=== PATIENT | female | born 1945 | race Caucasian/White ===

== ENCOUNTER 2016-06-14 03:23 | Inpatient (IN) | payer OTHER ==
[~2016-06-14] VITALS: Ht 160 cm; Wt 103.4 kg
[~2016-06-14 03:23] MED LIST: ATORVASTATIN CA10 M1 PO; CIPRO 500MG TA500 MG PO; CO Q-10100 MG PO; CRESTOR10 MG PO; FLAG500 PO; FUROSEMIDE40 M1 PO; HYDROCODONE/ACE1 TA1 PO; INSTAFLEX PO; LISINOPRIL40 M1 PO; METFORMIN HCL500 MG PO; MULTIPLE VITAM1 EAC2 PO; NEURONTIN300 MG; NORVASC2.5 M1 PO; POTASSIUM CHLO10 ME5 PO; PROTONIX40 M3 PO; SERTRALINE HCL50 MG PO; SUPER B COMPLE150 MG PO; SYNTHROID0.025 MG PO; TRAMADOL HCL E200 MG PO; TRAMADOL HCL50 M1 PO; VOLTAREN100 GM TOP
[2016-06-14] MEDS ORDERED: CLONAZEPAM0.5 M2 PO (10:29)
[2016-06-14] MEDS ORDERED: MS CONTIN15 M2 PO (13:03)
[2016-06-14] MEDS ORDERED: MIRALAX17 G1 PO (13:03)
[2016-06-14] MEDS ORDERED: DILAUDID4 M1 PO (13:03)
[2016-06-14] MEDS ORDERED: COLACE100 M1 PO (13:03)
[2016-06-14] MEDS ORDERED: ASPIRIN EC325 M2 PO (13:03)
--- NOTE | 2016-06-14 13:06 | Patient Discharge Instructions ---
Discharge Instructions General Discharge Information You were seen/treated for: Right knee pain You had these procedures: Right total knee replacement Watch for these problems: Increasing pain, redness, warmth, swelling. Drainage of any type from incision. Inability to bear weight on right leg. Fever greater than 101.5. Do not soak the wound: Yes No bath, but you may shower: Yes Special Instructions: Incision: Dry dressing. May shower. No baths. No ointments of any kind. Ice as needed. Bowel regimen: Colace and or MiraLAX Weight-bearing as tolerated Follow-up with Dr. Benítez in 6 weeks. Call office for fevers greater than 101.5, excessive drainage or inability to bear weight on operative extremity. Visiting nurse will change dressing. Diet Continue normal diet: Yes Recommended Diet: Heart Healthy Additional DIET Information: Advance as tolerated Activity Full Activity/No Limits: No Activity Self Limited: Yes Pounds, do NOT lift more than: 10 Additional ACTIVITY Info: Weight-bear as tolerated on right leg Acute Coronary Syndrome Inclusion Criteria At DC or during hospital stay patient has or had the following: ACS DIAGNOSIS No Discharge Core Measures Meds if any: Prescribed or Continued at Discharge Meds if any: NOT Prescribed or Continued at Discharge Congestive Heart Failure Inclusion Criteria At DC or during hospital stay patient has or had the following: CHF DIAGNOSIS No Discharge Core Measures Meds if any: Prescribed or Continued at Discharge Meds if any: NOT Prescribed or Continued at Discharge Cerebrovascular accident Inclusion Criteria At DC or during hospital stay patient has or had the following: CVA/TIA Diagnosis No Discharge Core Measures Meds if any: Prescribed or Continued at Discharge Meds if any: NOT Prescribed or Continued at Discharge Venous thromboembolism Inclusion Criteria VTE Diagnosis No VTE Type NONE VTE Confirmed by (Test) NONE Discharge Core Measures - Per Current guidelines, there needs to be overlap - treatment for the first 5 days of Warfarin therapy. - If discharged on Warfarin prior to 5 days of - overlap therapy, the patient will need to be - assessed for post discharge needs including - *Post discharge parental anticoagulation - *Warfarin and/or parental anticoagulation education - *Follow up date to check INR post discharge At least 5 days overlap therapy as Inpatient No Meds if any: Prescribed or Continued at Discharge Note: Overlap Therapy is Warfarin and Anticoagulant Meds if any: NOT Prescribed or Continued at Discharge
--- NOTE | 2016-06-14 13:08 | Admission Core Measures ---
Admission Meds I reviewed the following Meds: Current Medications Sig/Roney Start time Last Medication Dose Stop Time Status Admin Acetaminophen 975 MG ONCE 06/14 0000 NR (Tylenol) 06/14 2359 Amlodipine Besylate 2.5 MG DAILY 06/15 1000 UNVr (Norvasc) Atorvastatin Calcium 5 MG DAILY 06/15 1000 UNVr (Lipitor) Clonazepam 0.5 MG AT BEDTIME 06/15 2200 UNVr (KlonoPIN) 06/22 0959 Lisinopril 40 MG DAILY 06/15 1000 UNVr (Prinivil) Oxycodone HCl 10 MG ONCE 06/14 0000 NR (Roxicodone) 06/14 2359 Pantoprazole Sodium 40 MG DAILY 06/15 1000 UNVr (Protonix) Sertraline HCl 50 MG DAILY 06/15 1000 UNVr (Zoloft) Acute Coronary Syndrome Inclusion Criteria ACS Diagnosis No Inpatient Core Measures LDL Reminder: If No, please order W/I first 24hr of stay Congestive Heart Failure Inclusion Criteria CHF Diagnosis No Cerebrovascular accident Inclusion Criteria CVA/TIA Diagnosis No Inpatient Core Measures Bedside Swallow Eval Reminder: If BSE failed, place ST order Antithrombotic Reminder: Order Antithrombotic Medication by end of day 2 Antithrombotic Reminder: Document Reason Antithrombotic Not ordered by end of day 2 AFIB/Flutter Reminder: If Present, add to problem list AFIB/Flutter Reminder: Order Anticoag Medication for pts with AFIB/Flutter Atherosclerosis Reminder: If Present, add to problem list LDL Reminder: If No, please order W/I first 24hr of stay PT Order Reminder: If No, please order Venous thromboembolism Inpatient Core Measures VTE Risk Factors: Age > 40, Surgery VTE Prophylaxis [facility] prophylaxis d/t No contraindications No VTE Pharm Prophylaxis d/t No contraindications Inclusion Criteria - Per Current guidelines, there needs to be overlap - treatment for the first 5 days of Warfarin therapy. - Parenteral Anticoagulation (IV or SC) needs to be - given along with Warfarin therapy. VTE Diagnosis No VTE Type NONE VTE Confirmed by (Test) NONE Problem List As ranked by this Provider includes Assessment & Plan 1. Unilateral primary osteoarthritis, right knee HOME MEDS Home Med List Amlodipine (Norvasc) 2.5 MG TABLET 1 TAB PO DAILY HTN (Reported) Aspirin (Ecotrin*) 325 MG TABLET.DR 1 TAB PO BID ANTICOAGULATION Atorvastatin Calcium 10 MG TABLET 0.5 TAB PO DAILY CHOLESTEROL (Reported) Clonazepam 0.5 MG TABLET 1 TAB PO DAILY ANXIETY/DEPRESSION (Reported) Coenzyme Q10/Vitamin E (Co-Q-10 100 MG-1 Iu) (Unknown Strength) SGL (Unknown Dose) PO DAILY SUPPLEMENT (Reported) Diclofenac Sodium (Voltaren) 1% GEL 1 GM TOP PRN PAIN (Reported) Docusate Sodium (Colace) 100 MG CAPSULE 1 CAP PO BID CONSTIPATION Furosemide 40 MG TAB 1 TAB PO PRN LEG EDEMA (Reported) Hydromorphone HCl (Dilaudid) 4 MG TABLET 1-2 TAB PO Q4-6H PRN PAIN Lisinopril 40 MG TAB 1 TAB PO DAILY BP (Reported) Morphine Sulfate (Ms Contin) 15 MG TABLET.ER 1 TAB PO BID PAIN Multivitamin (Multiple Vitamins) 1 TAB TAB 1 TAB PO 2XW SUPPLEMENT (Reported) Pantoprazole Sodium (Protonix) 40 MG TAB 40 MG PO DAILY ACID REFLUX (Reported ) Polyethylene Glycol 3350 (Miralax) 17 GRAM POWD.PACK 1 PAC PO DAILY CONSTIPATION Potassium Chloride [address] 1 TAB PO PRN SUPPLEMENT (Reported) SERTRALINE HCL (Sertraline Hydrochloride) 50 MG TAB 1 TAB PO DAILY MENTAL HEALTH (Reported) TRAMADOL HCL (Tramadol) 50 MG TAB 2 TAB PO Q8H PAIN (Reported) Tramadol HCl (Tramadol HCl ER) 200 MG TAB.ER.24H 1 TAB PO DAILY PAIN ( Reported) Vitamin B Complex (Super B Complex W/B-12) 1 TAB TAB 1 TAB PO DAILY SUPPLEMENT (Reported)
--- NOTE | 2016-06-14 13:10 | Surgical Discharge Summary ---
Visit Information Visit Dates Admission Date: 06/14/16 Discharge Date: 06/16/2016 History of Present Illness Chief Complaint: Right knee pain Medical History Cardiovascular: hypertension, hyperlipidemia Musculoskeletal: CHRONIC KNEE, BACK PAIN Psychiatric: depression Surgical History Pertinent Surgical History: non-contributory Psychosocial History What is Your Primary Language? Cymro Review of Systems: See H&P Hospital Course Course Attending Physician: REYMUNDO CA MD Primary Care Physician: JOSE JOHNSON MD Hospital Course: Patient was admitted to the hospital on 06/14/2016 for an elective right total knee replacement. She tolerated the procedure well. She was transferred to a general surgical floor. Her diet was advanced and tolerated. Her vital signs were stable and within normal limits. She voided spontaneously. Her pain was well controlled. She was evaluated and treated by physical therapy. She was deemed appropriate for discharge to home with home health services. Allergies: Coded Allergies: NO KNOWN ALLERGIES (06/08/16) Disposition Summary Disposition Principal Diagnosis: Right knee unilateral primary osteoarthritis Additional Diagnosis: None Discharge Disposition: home health services Discharge Instructions General Discharge Information Code Status: Full Code Patient's Diet: Heart healthy, advance as tolerated Patient's Activity: Weight-bear as tolerated on right leg Follow-Up Instructions/Appts: Incision: Dry dressing. May shower. No baths. No ointments of any kind. Ice as needed. Bowel regimen: Colace and or MiraLAX Weight-bearing as tolerated Follow-up with Dr. Ca in 6 weeks. Call office for fevers greater than 101.5, excessive drainage or inability to bear weight on operative extremity. Visiting nurse will change dressing. Medications at Discharge Discharge Medications: Stop taking the following medications: Tramadol HCl (Tramadol HCl) 50 MG TABLET ORAL Q8H Tramadol HCl (Tramadol HCl ER) 200 MG TAB.ER.24H ORAL DAILY Continue taking these medications: Lisinopril (Lisinopril) 40 MG TABLET 1 Tablet ORAL DAILY Sertraline HCl (Sertraline HCl) 50 MG TABLET 1 Tablet ORAL DAILY Diclofenac Sodium (Voltaren) 1 % GEL..GRAM. 1 Gram On the skin 4 TIMES A DAY as needed for PAIN Instructions: apply to affected area(s) Pantoprazole Sodium (Protonix) 40 MG TABLET.DR 1 Tablet ORAL DAILY Furosemide (Furosemide) 40 MG TABLET 1 Tablet ORAL DAILY as needed for LEG EDEMA Potassium Chloride (Potassium Chloride) 10 MEQ TAB.ER.PRT 1 Tablet ORAL DAILY as needed for SUPPLEMENT Comments: PT ONLY TAKES PRN WITH LASIX Multivitamin (Multiple Vitamins) 1 EACH TABLET 1 Tablet ORAL 2 times per week Comments: MON AND FRI Vitamin B Complex & Vit C No.4 (Super B Complex) 150 MG TABLET 1 Tablet ORAL DAILY Atorvastatin Calcium (Atorvastatin Calcium) 10 MG TABLET 0.5 Tablet ORAL DAILY Amlodipine (Norvasc) 2.5 MG TABLET 1 Tablet ORAL DAILY Clonazepam (Clonazepam) 0.5 MG TABLET 1 Tablet ORAL DAILY Start taking the following new medications: Hydromorphone HCl (Dilaudid) 4 MG TABLET 1-2 Tablet ORAL Q4-6H as needed for PAIN Qty = 36 No Refills Morphine Sulfate (Ms Contin) 15 MG TABLET.ER 1 Tablet ORAL TWICE DAILY Qty = 6 No Refills Aspirin (Ecotrin*) 325 MG TABLET.DR 1 Tablet ORAL TWICE DAILY Qty = 60 No Refills Polyethylene Glycol 3350 (Miralax) 17 GRAM POWD.PACK 1 Packet ORAL DAILY Qty = 7 No Refills Instructions: dissolve in water, DISCONTINUE USE IF YOU DEVELOP LOOSE STOOL OR DIARRHEA Docusate Sodium (Colace) 100 MG CAPSULE 1 Capsule ORAL TWICE DAILY Qty = 14 No Refills Instructions: DISCONTINUE USE IF YOU DEVELOP LOOSE STOOL OR DIARRHEA Aspirin (Ecotrin*) 325 MG TABLET. 1 Tablet ORAL TWICE DAILY Qty = 60 No Refills Polyethylene Glycol 3350 (Miralax) 17 GRAM POWD.PACK 1 Packet ORAL DAILY Qty = 7 No Refills Instructions: dissolve in water, DISCONTINUE USE IF YOU DEVELOP LOOSE STOOL OR DIARRHEA Docusate Sodium (Colace) 100 MG CAPSULE 1 Capsule ORAL TWICE DAILY Qty = 14 No Refills Instructions: DISCONTINUE USE IF YOU DEVELOP LOOSE STOOL OR DIARRHEA
--- NOTE | 2016-06-14 16:34 | Operative Report ---
Operative/Inv Procedure Report Surgery Date: 06/14/16 Name of Procedure: 1. Right total knee replacement 2. Left knee cortisone injection Pre-Operative Diagnosis: Primary Bilateral knee DJD Post-Operative Diagnosis: Same Estimated Blood Loss: 50ml to 100ml Surgeon/Paster Operator: REYMUNDO CA MD Anesthesia: block Operative/Procedure Note Note: Description of Procedure: The patient was taken to the operating room and positively identified. After induction of spinal anesthesia and administration of appropriate pre-operative antibiotics, the patient was positioned supine on the operating room table and all bony prominences were well padded. The left knee was prepped sterilely and injected with a mixture of 2 mL's of Depo-Medrol and 8 mL of half percent Marcaine. A Band-Aid was placed over the injection site. Attention was then turned to the right lower extremity. A well-padded pneumatic tourniquet was placed on the right upper thigh. After performing a surgical timeout, the right lower extremity was prepped and draped in the usual sterile fashion. After exsanguination with Esmarch the tourniquet was inflated to 250mm of mercury. A standard medial parapatellar approach was made to the knee. This was carried down through skin and subcutaneous tissue to the level of the fascia. Meticulous hemostasis was maintained with Bovie electrocautery. The extensor mechanism and patellar retinaculum were opened sharply and the patella was everted. The infrapatellar fat was resected in order to improve exposure. Osteophytes were trimmed from the patella and femoral condyles and the patella was re-everted and tucked laterally. A medial release was performed and the cruciate ligaments were resected. The tibia was then subluxed anteriorly. Utilizing the appropriate extra-medullary guide, the proximal tibia was trimmed perpendicular to the long axis of the tibial shaft. Attention was then turned to the femur. After opening the medullary canal, the distal femoral cut was made in 6 degrees of valgus utilizing the appropriate intra-medullary guide. The extension gap was checked and found to be appropriate. The femur was then sized and the remainder of the femoral cuts were made with a size 4 4-in-1 femoral cutting guide. The flexion gap was checked and found to be symmetric and appropriate. The knee was then trialed with a size 4 femoral component, a size 4 tibial component and a size 11 mm polyethylene insert. The patella was trimmed to accept an A 32 patella. This yielded excellent range of motion, stability and patellar tracking. All trial components were removed and the knee was copiously irrigated with sterile saline. All components were cemented into place with [place] Simplex cement. All the components were of the barcoo Triathlon knee system of the above stated sizes. The knee was again irrigated after cementation. The extensor mechanism and patellar retinaculum were repaired using interrupted #1 vicryl suture. The skin was re-approximated with 2-0 vicryl and closed with jillian. A sterile dressing was applied, the tourniquet was deflated, the patient was awakened and taken to the recovery room in satisfactory condition.
[2016-06-14 19:00] VITALS: BP 160/80
--- NOTE | 2016-06-14 19:00 | NUR ---
LATE ENTRY: PT ARRIVED TO FLOOR FROM PACU. STABLE AND IN NO ACUTE DISTRESS. PT IS C/O R KNEE PAIN 10/25- TO MEDICATE WITH PRN MEDICATION. OTHERWISE, DOING WELL. ORIENTED TO ROOM AND CALL [facility]. EVENING ELECTRICAL TESTER CONTACTED FOR BOXED LUNCH PT C/O FEELING HUNGRY. SEE ADMISSION ASSESSMENT FOR FURTHER DETAILS. REPORT GIVEN TO OSVALDO LEE. TO CONT TO MONITOR.
--- NOTE | 2016-06-14 21:56 | PN- Orthopedic ---
Subjective Subjective: poc s/p right tka no major complaints now cp, sob, no n+v with diet Objective Vital Signs and I&Os Vital Signs Date Time Temp Pulse Resp B/P Pulse O2 O2 Flow FiO2 Ox Delivery Rate 06/14 1900 98.9 90 20 160/80 92 Room Air Physical Exam: cv: rrr lungs: clear abd: soft, +bs ext: right le distal cms inatact drsg dry on q in place Assessment/Plan Assessment/Plan ortho stable plan oob with pt in am home d/c planning Core Measures/Miscellaneous Venous Thromboembolism VTE Risk Factors: Age > 40, Obesity, Surgery VTE Contraindications: No Contraindications VTE Prophylaxis Ordered Inpt: Mech & Pharm VTE Diagnosis: No VTE Type: NONE VTE Confirmed by (Test): NONE Beta Gerry Is Beta Gerry a Home Med? Yes Antibiotics Is Patient on Antibiotics? Yes
[2016-06-15 00:59] VITALS: BP 182/71
[2016-06-15 04:00] VITALS: BP 158/80
--- NOTE | 2016-06-15 07:20 | PN- Orthopedic ---
Subjective Subjective: The patient was seen this morning postoperatively. She reports that her pain is not adequately controlled with the current pain regiment. She has no other complaints at the current time and is eager to get up and work with physical therapy this morning. Objective Vital Signs and I&Os Vital Signs Date Time Temp Pulse Resp B/P Pulse O2 O2 Flow FiO2 Ox Delivery Rate 06/15 0621 85 165/87 06/15 0400 91 158/80 06/15 0059 98.7 90 20 182/71 94 Room Air 06/14 1900 98.9 90 20 160/80 92 Room Air Intake & Output 06/15 0800 06/15 0000 06/14 1600 06/14 0800 06/14 0000 06/13 1600 Intake Total 1400 300 Output Total 3560 690 Balance -2160 -390 Intake, IV 600 300 Intake, Oral 800 Output, 10 40 Drainage Output, Urine 3550 650 Patient 228 lb Weight Physical Exam: Gen.: Alert and in no obvious distress Skin: Warm and dry Extremities: Bilateral lower extremities are warm without calf tenderness or significant edema. Gross motor and sensory are intact. Left lower extremities dressings clean, dry, and intact. There is a Suretrans drain in place holding suction with serosanguineous drainage in the canister. There is an On-Q pain pump in place. Assessment/Plan Assessment/Plan Assessment: 70-year-old female status post left total knee arthroplasty postoperative day 1. The patient is progressing as expected however pain is not adequately controlled current time. Plan: Will add long-lasting morphine and when necessary Toradol to current pain regiment Hep-Lock IV fluids and DC Alejandra catheter Follow-up morning laboratory studies Out of bed with physical therapy DC Suretrans drain First surgical dressing change tomorrow GI and DVT prophylaxis Core Measures/Miscellaneous Venous Thromboembolism VTE Risk Factors: Age > 40, Obesity, Surgery VTE Contraindications: No Contraindications VTE Prophylaxis Ordered Inpt: Mech & Pharm VTE Diagnosis: No VTE Type: NONE VTE Confirmed by (Test): NONE Beta Gerry Is Beta Gerry a Home Med? Yes Antibiotics Is Patient on Antibiotics? No
[2016-06-15 08:03] LABS: ABSOLUTE BASOPHIL COUNT 0 /CUMM (0.0-0.2); ABSOLUTE EOSINOPHIL COUNT 0 /CUMM (0.0-0.7); ABSOLUTE LYMPH COUNT 0.8 /CUMM (1.2-3.4); ABSOLUTE MONOCYTE COUNT 0.3 /CUMM (0.10-0.60); BASOPHIL % 0 % (0.0-2.0); EOSINOPHIL % 0 % (0-5); MEAN CORPUSCULAR HGB 31.1 PG (27.0-31.0); MEAN CORPUSCULAR HGB CONC 34.5 G/DL (33.0-37.0); MEAN CORPUSCULAR VOLUME 90.1 FL (81.0-99.0); MEAN PLATELET VOLUME 8.7 FL (7.4-10.4); PLATELET COUNT 191 /CUMM (130-400); RBC DISTRIBUTION WIDTH 13.3 % (11.5-14.5); RED BLOOD CELL CT 3.67 /CUMM (4.20-5.40)
[2016-06-15 08:12] LABS: GRANULOCYTE % 87.3 % (42.2-75.2)
[2016-06-15 08:41] VITALS: BP 172/83
[2016-06-15 09:36] LABS: WHITE BLOOD CELL COUNT 9.1 /CUMM (4.8-10.8)
[2016-06-15 16:52] VITALS: BP 136/72
--- NOTE | 2016-06-15 20:44 | NUR ---
ALERT AND ORIENTED X 3. VITAL SIGNS STABLE. DENIES CHEST PAIN. + PULSES ON ROOM AIR. ONQ PUMP AT 12ML/HR. DSG TO R KNEE IS C/D/I. MEDICATION GIVEN FOR PAIN. PATIENT RESTING AT THIS TIME. WILL CONTINUE TO MONITOR
[2016-06-15 23:57] VITALS: BP 124/60
--- NOTE | 2016-06-16 07:13 | PN- Orthopedic ---
Subjective Subjective: OOB in chair Had a good night. Pain is well controlled. Worked with PT yesterday and ambulated in hallway. Tolerating diet, no bm Objective Vital Signs and I&Os Vital Signs Date Time Temp Pulse Resp B/P Pulse O2 O2 Flow FiO2 Ox Delivery Rate 06/15 2357 98.9 72 18 124/60 94 Room Air 06/15 1652 98.5 84 20 136/72 94 Room Air 06/15 0927 84 172/83 06/15 0841 98.3 84 18 172/83 96 Room Air Intake & Output 06/16 0800 06/16 0000 06/15 1600 06/15 0800 06/15 0000 06/14 1600 Intake Total 675 1400 300 Output Total 550 4060 690 Balance 125 -2660 -390 Intake, IV 600 300 Intake, Oral 675 800 Output, 10 40 Drainage Output, Urine 550 4050 650 Patient 228 lb Weight Physical Exam: vss, afebrile General: alert and oriented times three Chest: clear anteriorly bilaterally, RRR Abd: soft, good bs Ext: warm, edema around R knee, no calf tenderness wound: jillian intact, no drainage or erythema, dressing dry Current Medications: Current Medications Sig/Roney Start time Last Medication Dose Route Stop Time Status Admin Acetaminophen 1,000 MG Q6P PRN 06/14 193 DC IV 06/15 192 Amlodipine Besylate 2.5 MG DAILY 06/15 1000 DC PO Amlodipine Besylate 2.5 MG DAILY 06/15 1000 AC 06/15 PO 0927 Aspirin 325 MG BID 06/14 2199 AC 06/15 PO 211 Atorvastatin Calcium 5 MG 1700 06/15 1700 AC 06/15 PO 1658 Atorvastatin Calcium 5 MG DAILY 06/15 1000 DC PO Clonazepam 0.5 MG AT BEDTIME 06/15 220 DC PO 06/22 0959 Clonazepam 0.5 MG AT BEDTIME 06/15 2200 AC 06/15 PO / 0959 2111 Docusate Sodium 100 MG BID 06/14 220 AC 06/15 PO 2111 Hydromorphone HCl 2 MG Q4P PRN 06/14 1930 AC 06/15 PO 1324 Hydromorphone HCl 4 MG Q4P PRN 06/14 1930 AC PO Ketorolac 15 MG Q8P PRN 06/15 0715 AC 06/16 Tromethamine IV 0328 Lisinopril 40 MG DAILY 06/15 1000 DC PO Lisinopril 40 MG DAILY 06/15 1000 AC 06/15 PO 620 Morphine Sulfate 15 MG BID 06/15 1000 AC 06/15 PO 2111 Morphine Sulfate 2 MG Q2P PRN 06/14 1930 AC 06/14 IV 2140 Ondansetron HCl 4 MG Q6P PRN 06/14 1930 AC IV Pantoprazole Sodium 40 MG DAILY 06/15 1000 DC IV Pantoprazole Sodium 40 MG DAILY 06/15 1000 AC 06/15 IV 0927 Polyethylene Glycol 17 GM DAILY 06/15 1000 AC 06/15 PO 927 Promethazine HCl 12.5 MG Q6P PRN 06/14 1930 AC IV 06/21 1259 Ropivacaine 500 ML ONCE ONE 06/14 1700 AC 06/14 ON-Q Ball 1 BAG INJ 06/16 1039 1700 Sertraline HCl 50 MG DAILY 06/15 1000 DC PO Sertraline HCl 50 MG DAILY 06/15 1000 AC 06/15 PO 926 Zolpidem Tartrate 5 MG AT BEDTIME 06/15 2200 AC 06/15 PO 2110 Assessment/Plan Assessment/Plan 70 yo female s/p R TKR PT -wbat Possible dc to home later today - await PT clearance of stairs Continue current pain regimen ASA for dvt ppx Core Measures/Miscellaneous Venous Thromboembolism VTE Risk Factors: Age > 40, Obesity, Surgery VTE Contraindications: No Contraindications VTE Prophylaxis Ordered Inpt: Mech & Pharm VTE Diagnosis: No VTE Type: NONE VTE Confirmed by (Test): NONE Beta Gerry Is Beta Gerry a Home Med? Yes Antibiotics Is Patient on Antibiotics? No
--- NOTE | 2016-06-16 07:15 | PN- Orthopedic ---
Subjective Subjective: POd#2 S/P RIGHT TKA NO MAJOR COMPLAINTS THIS AM DENIES CP, SOB, NO N+V WITH DIET Objective Vital Signs and I&Os Vital Signs Date Time Temp Pulse Resp B/P Pulse O2 O2 Flow FiO2 Ox Delivery Rate 06/15 2357 98.9 72 18 124/60 94 Room Air 06/15 1652 98.5 84 20 136/72 94 Room Air 06/15 0927 84 172/83 06/15 0841 98.3 84 18 172/83 96 Room Air Intake & Output 06/16 0800 06/16 0000 06/15 1600 06/15 0800 06/15 0000 06/14 1600 Intake Total 675 1400 300 Output Total 550 4060 690 Balance 125 -2660 -390 Intake, IV 600 300 Intake, Oral 675 800 Output, 10 40 Drainage Output, Urine 550 4050 650 Patient 228 lb Weight Physical Exam: CV: RRR LUNGS: CLEAR ABD: +BS, NT/ND EXT: DRSG CHANGED, WOUND C/D/I NO CALF TENDERNESS BILAT DISTAL CMS INTACT Assessment/Plan Assessment/Plan ORTHO STABLE PLAN CONT OOB WITH PT/STAIRS ASA FOR DVT PROPHYLS\AXIS HOME D/C PLANNING Core Measures/Miscellaneous Venous Thromboembolism VTE Risk Factors: Age > 40, Obesity, Surgery VTE Contraindications: No Contraindications VTE Prophylaxis Ordered Inpt: Mech & Pharm VTE Diagnosis: No VTE Type: NONE VTE Confirmed by (Test): NONE Beta Gerry Is Beta Gerry a Home Med? Yes Antibiotics Is Patient on Antibiotics? No
[2016-06-16 08:31] VITALS: BP 140/72
[2016-06-16 09:29] VITALS: BP 140/72
[2016-09-22] MEDS ORDERED: VITAMIN D2000 UNIT PO (12:26)
== END 2016-06-16 13:55 | disposition home health service (06) | DRG 470 ==
LOC: ENRESERVDT → ENRESERVTM → ENPENDDIS 03:23 → SDA 03:23 → 2NB 03:23
PROVIDERS: Nurse Practitioner; ADMIT Orthopaedic Surgery
PROC: 0SRC0J9 Replacement of Right Knee Joint with Synthetic Substitute, Cemented, Open Approach (ICD-10-PCS; principal; 2016-06-14)
PROC: 3E0U3BZ Introduction of Anesthetic Agent into Joints, Percutaneous Approach (ICD-10-PCS; principal; 2016-06-14)
PROC: 3E0U33Z Introduction of Anti-inflammatory into Joints, Percutaneous Approach (ICD-10-PCS; principal; 2016-06-14)
DX: M17.11 Unilateral primary osteoarthritis, right knee (principal); Z68.41 Body mass index [BMI] 40.0-44.9, adult; I10 Essential (primary) hypertension; E66.9 Obesity, unspecified; M17.0 Bilateral primary osteoarthritis of knee; E11.9 Type 2 diabetes mellitus without complications; F32.9 Major depressive disorder, single episode, unspecified; K21.9 Gastro-esophageal reflux disease without esophagitis
CPT/HCPCS: 2NBSP; 36415; 82436; 87086; 88305; 97110-GO; 97116-GO; 97161-GP; 97530-GO; C1713; J0131; J0690; J1030; J2405; J2550; J2795; J7042

== ENCOUNTER 2016-09-27 04:56 | Inpatient (IN) | payer OTHER ==
[~2016-09-27] VITALS: Ht 160 cm; Wt 108.9 kg
[~2016-09-27 04:56] MED LIST changes: +ASPIRIN EC325 M2 PO; +CLONAZEPAM0.5 M2 PO; +COLACE100 M1 PO; +DILAUDID4 M1 PO; +MIRALAX17 G1 PO; +MS CONTIN15 M2 PO; +VITAMIN D2000 UNIT PO
[2016-09-27] MEDS ORDERED: DILAUDID2 M1 PO (11:09)
[2016-09-27] MEDS ORDERED: ASPIRIN EC325 M2 PO (11:09)
[2016-09-27] MEDS ORDERED: COLACE100 M1 PO (11:09)
[2016-09-27] MEDS ORDERED: MIRALAX17 G1 PO (11:09)
[2016-09-27] MEDS ORDERED: MS CONTIN15 M2 PO (11:09)
--- NOTE | 2016-09-27 11:12 | Patient Discharge Instructions ---
Discharge Instructions General Discharge Information You were seen/treated for: Left knee pain related to unilateral primary osteoarthritis You had these procedures: Left total knee replacement Watch for these problems: Increasing pain despite the use of pain medication. Increasing redness, warmth, swelling. Drainage of any type from incision. Inability to bear weight on operative leg. Persistent nausea and vomitting. Fever greater than 101.5 degrees. Do not soak the wound: Yes Daily wet to dry dressings: No No bath, but you may shower: Yes Other wound care: Keep wound clean and dry. Your dressing will be changed on the second day following your surgery by nursing. Daily dry dressing changes recommend thereafter. No ointments or lotions of any type on or near incision at any time. No exceptions. Special Instructions: Aspirin: You are taking aspirin to help prevent the development of blood clots. You will be taking it twice a day. Please take this as directed for four weeks. Please take with food to help protect your stomach. Constipation: Pain medications can be very constipating. You have been given a prescription for colace and miralax. Please take this as directed. In the event that you run out of these medications, they are available over the counter. You may discontinue these medications if you develop loose stool or diarrhea. If you are unable to move your bowels for several days, or if you have not passed any gas, please contact your doctor. Diet Continue normal diet: Yes Recommended Diet: Heart Healthy Activity Full Activity/No Limits: No Activity Self Limited: Yes Pounds, do NOT lift more than: 10 Activity Limited to: Weight bear as tolerated Acute Coronary Syndrome Inclusion Criteria At DC or during hospital stay patient has or had the following: ACS DIAGNOSIS No Discharge Core Measures Meds if any: Prescribed or Continued at Discharge Meds if any: NOT Prescribed or Continued at Discharge Congestive Heart Failure Inclusion Criteria At DC or during hospital stay patient has or had the following: CHF DIAGNOSIS No Discharge Core Measures Meds if any: Prescribed or Continued at Discharge Meds if any: NOT Prescribed or Continued at Discharge Cerebrovascular accident Inclusion Criteria At DC or during hospital stay patient has or had the following: CVA/TIA Diagnosis No Discharge Core Measures Meds if any: Prescribed or Continued at Discharge Meds if any: NOT Prescribed or Continued at Discharge Venous thromboembolism Inclusion Criteria VTE Diagnosis No VTE Type NONE VTE Confirmed by (Test) NONE Discharge Core Measures - Per Current guidelines, there needs to be overlap - treatment for the first 5 days of Warfarin therapy. - If discharged on Warfarin prior to 5 days of - overlap therapy, the patient will need to be - assessed for post discharge needs including - *Post discharge parental anticoagulation - *Warfarin and/or parental anticoagulation education - *Follow up date to check INR post discharge At least 5 days overlap therapy as Inpatient No Meds if any: Prescribed or Continued at Discharge Note: Overlap Therapy is Warfarin and Anticoagulant Meds if any: NOT Prescribed or Continued at Discharge
--- NOTE | 2016-09-27 11:13 | Admission Core Measures ---
Admission Meds I reviewed the following Meds: Current Medications Sig/Roney Start time Last Medication Dose Stop Time Status Admin Acetaminophen 975 MG ONCE 09/27 0000 NR (Tylenol) 09/27 235 Amlodipine Besylate 2.5 MG DAILY 09/27 1000 AC (Norvasc) Atorvastatin Calcium 5 MG 1700 09/27 1700 AC (Lipitor) Cefazolin Sodium 2,000 MG ONCE 09/27 0000 NR (Kefzol-Ancef Inj) 09/27 2358 Clonazepam 0.5 MG 2200 09/27 2200 AC (KlonoPIN) 10/04 215 Lisinopril 40 MG DAILY 09/27 1000 AC (Prinivil) Oxycodone HCl 10 MG ONCE 09/27 0000 AC (Roxicodone) 09/27 235 Pantoprazole Sodium 40 MG DAILY 09/27 1000 AC (Protonix) Ropivacaine 500 ML ONCE ONE 09/27 1100 AC (NAROPIN) 09/29 1259 ON-Q Ball 1 BAG Sertraline HCl 50 MG DAILY 09/27 1000 AC (Zoloft) Acute Coronary Syndrome Inclusion Criteria ACS Diagnosis No Inpatient Core Measures LDL Reminder: If No, please order W/I first 24hr of stay Congestive Heart Failure Inclusion Criteria CHF Diagnosis No Cerebrovascular accident Inclusion Criteria CVA/TIA Diagnosis No Inpatient Core Measures Bedside Swallow Eval Reminder: If BSE failed, place ST order Antithrombotic Reminder: Order Antithrombotic Medication by end of day 2 Antithrombotic Reminder: Document Reason Antithrombotic Not ordered by end of day 2 AFIB/Flutter Reminder: If Present, add to problem list AFIB/Flutter Reminder: Order Anticoag Medication for pts with AFIB/Flutter Atherosclerosis Reminder: If Present, add to problem list LDL Reminder: If No, please order W/I first 24hr of stay PT Order Reminder: If No, please order Venous thromboembolism Inpatient Core Measures VTE Risk Factors: Age > 40, Surgery No [facility] VTE prophylaxis d/t No contraindications No VTE Pharm Prophylaxis d/t No contraindications Inclusion Criteria - Per Current guidelines, there needs to be overlap - treatment for the first 5 days of Warfarin therapy. - Parenteral Anticoagulation (IV or SC) needs to be - given along with Warfarin therapy. VTE Diagnosis No VTE Type NONE VTE Confirmed by (Test) NONE Problem List As ranked by this Provider includes Assessment & Plan 1. Unilateral primary osteoarthritis, left knee HOME MEDS Home Med List Amlodipine (Norvasc) 2.5 MG TABLET 1 TAB PO DAILY HTN (Reported) Aspirin (Ecotrin*) 325 MG TABLET.DR 1 TAB PO BID ANTICOAGULATION Atorvastatin Calcium 10 MG TABLET 0.5 TAB PO DAILY CHOLESTEROL (Reported) Cholecalciferol (Vitamin D3) (Vitamin D) 2,000 UNIT CAPSULE 1 CAP PO DAILY PROPHO (Reported) Clonazepam 0.5 MG TABLET 1 TAB PO NIGHTLY ANXIETY/DEPRESSION (Reported) Docusate Sodium (Colace) 100 MG CAPSULE 1 CAP PO BID CONSITPATION Hydromorphone HCl (Dilaudid) 2 MG TABLET 1-2 TAB PO Q4-6 PRN PAIN Lisinopril 40 MG TABLET 1 TAB PO DAILY BP (Reported) Morphine Sulfate (Ms Contin) 15 MG TABLET.ER 1 TAB PO BID PAIN Pantoprazole Sodium (Protonix) 40 MG TABLET.DR 1 TAB PO DAILY ACID REFLUX ( Reported) Polyethylene Glycol 3350 (Miralax) 17 GRAM POWD.PACK 1 PAC PO DAILY CONSTIPATION Sertraline HCl 50 MG TABLET 1 TAB PO DAILY MENTAL HEALTH (Reported) Vitamin B Complex & Vit C No.4 (Super B Complex) 150 MG TABLET 1 TAB PO DAILY SUPPLEMENT (Reported)
--- NOTE | 2016-09-27 11:15 | Surgical Discharge Summary ---
Visit Information Visit Dates Admission Date: 09/27/16 Discharge Date: 09/30/16 History of Present Illness Chief Complaint: Left knee pain related to unilateral primary osteoarthritis Medical History Neurological: NONE EENT: NONE Cardiovascular: hypertension, hyperlipidemia Respiratory: NONE Gastrointestinal: GERD Hepatic: NONE Renal: NONE Musculoskeletal: CHRONIC KNEE, BACK PAIN Psychiatric: depression Endocrine: HX DM- WELL CONTROLLED W/ DIET Blood Disorders: NONE Cancer(s): NONE STORAGE CENTER MANAGER/Reproductive: NONE History of MRSA: No History of VRE: No History of CDIFF: No Influenza Vaccine: 01/31/16 Surgical History Pertinent Surgical History: cholecystectomy, hysterectomy, TONSILLECTOMY R ELBOW TENDINITIS REPAIR D&C Psychosocial History Who Do You Live With? Patient/Self Services at Home: None What is Your Primary Language? Bahamian Review of Systems: See H&P Hospital Course Course Attending Physician: REYMUNDO CA MD Primary Care Physician: JOSE JOHNSON MD Hospital Course: Patient was admitted to the hospital on 09/27/2016 for an elective total joint replacement. The procedure was tolerated well and the patient was transferred to a general surgical floor. There, the patient's diet was advanced and tolerated, the patient voided spontaneously, and was evaluated and treated by physical therapy. At the time of hospital discharge, vital signs were stable and within normal limits, neurovascular status was intact, and pain was controlled with the use of oral pain medication. Allergies: Coded Allergies: NO KNOWN ALLERGIES (06/08/16) Disposition Summary Disposition Principal Diagnosis: Left knee unilateral primary osteoarthritis Additional Diagnosis: None Discharge Disposition: home health services Discharge Instructions General Discharge Information Code Status: Full Code Patient's Diet: Heart healthy, advance as tolerated Patient's Activity: WBAT Follow-Up Instructions/Appts: Follow up with Dr. Ca in 6 weeks from date of surgery. Please call his office to arrange and or confirm this appointment. Medications at Discharge Discharge Medications: Continue taking these medications: Lisinopril (Lisinopril) 40 MG TABLET 1 Tablet ORAL DAILY Comments: Last Taken: 09/30/16 Time: 09:00 AM Sertraline HCl (Sertraline HCl) 50 MG TABLET 1 Tablet ORAL DAILY Comments: Last Taken: 09/30/16 Time: 09:00 AM Pantoprazole Sodium (Protonix) 40 MG TABLET. 1 Tablet ORAL DAILY Comments: NOT GIVEN Vitamin B Complex & Vit C No.4 (Super B Complex) 150 MG TABLET 1 Tablet ORAL DAILY Comments: NOT GIVEN IN HOSPITAL Atorvastatin Calcium (Atorvastatin Calcium) 10 MG TABLET 0.5 Tablet ORAL DAILY Comments: Last Taken: 09/29/16 Time: 5:00 PM Amlodipine (Norvasc) 2.5 MG TABLET 1 Tablet ORAL DAILY Comments: Last Taken: 09/30/16 Time: 09:00 AM Clonazepam (Clonazepam) 0.5 MG TABLET 1 Tablet ORAL NIGHTLY Comments: Last Taken: 09/29/16 Time: 10:00 PM Cholecalciferol (Vitamin D3) (Vitamin D) 2,000 UNIT CAPSULE 1 Capsule ORAL DAILY Comments: NOT GIVEN IN HOSPITAL Start taking the following new medications: Aspirin (Ecotrin*) 325 MG TABLET.DR 1 Tablet ORAL TWICE DAILY Qty = 60 No Refills Comments: Last Taken: 09/30/16 Time: 0900AM Docusate Sodium (Colace) 100 MG CAPSULE 1 Capsule ORAL TWICE DAILY Qty = 14 No Refills Instructions: DISCONTINUE USE IF YOU DEVELOP LOOSE STOOL OR DIARRHEA Comments: Last Taken: 09/30/16 Time: 0900AM Polyethylene Glycol 3350 (Miralax) 17 GRAM POWD.PACK 1 Packet ORAL DAILY Qty = 7 No Refills Instructions: dissolve in water, DISCONTINUE USE IF YOU DEVELOP LOOSE STOOL OR DIARRHEA Comments: Last Taken: 09/30/16 Time: 0900AM Morphine Sulfate (Ms Contin) 15 MG TABLET.ER 1 Tablet ORAL TWICE DAILY Qty = 4 No Refills Comments: Last Taken: 09/30/16 Time: 0900AM Hydromorphone HCl (Dilaudid) 2 MG TABLET 1-2 Tablet ORAL EVERY 4-6 HOURS as needed for PAIN Qty = 36 No Refills Comments: Last Taken: 09/29/16 Time: 2230PM
--- NOTE | 2016-09-27 13:42 | PN- Orthopedic ---
Subjective Subjective: Post op check Awake, alert post op Denies any nausea, no pain Just had On Q placed Objective Vital Signs and I&Os VSS, afebrile General: alert and oriented times three Chest: clear anteriorly bilaterally, RRR Abd: soft, good bs Ext: warm, no edema, positive sensate, no calf tenderness, good strength plantar flex/dorsiflex BLE Wound: dressed, dry, ice pack in place, on Q in place Assessment/Plan Assessment/Plan 70yo female s/p L TKR pain management PT-WBAT fu void labs in am Multiple comorbidities including HTN, lipids, IDDM, arthritis, diverticulitis, GERD - home meds resumed SS insulin with acuchecks ac/hs while in house dc planning - likely 2 days Core Measures/Miscellaneous Venous Thromboembolism VTE Risk Factors: Age > 40, Obesity, Surgery VTE Contraindications: No Contraindications VTE Diagnosis: No VTE Type: NONE VTE Confirmed by (Test): NONE Beta Gerry Is Beta Gerry a Home Med? No Antibiotics Is Patient on Antibiotics? Yes If Yes: prophylaxis (24 hrs post op)
[2016-09-27 14:30] VITALS: BP 128/70
--- NOTE | 2016-09-27 14:30 | NUR ---
NURSING NOTE: PT ARRIVED TO FLOOR VIA STRETCHER WITH DISTRIBUTION FROM OR S/P L TKR, PT AWAKE, A/OX3, VITALS OBTAINED, 2L NC 94%, PT TRANSFERRED INTO BED, BED ALARM IN PLACE, HIGH FALL RISK PROTOCOL IN PLACE, +CMS, KLARISSA WRAP TO L KNEE. ICE TO L KNEE. DTV BY 1800PM. INSENTIVE SPIR GIVEN. PT DENIES PAIN, HAD SPINAL ANESTHESIA AT 1000AM; UNABLE TO RECEIVE NARCOTICS UNTIL 2AM 09/28/16; NOTED ON WHITE BOARD AND ABOVE PTS BED. HOURLY ROUNDING EXPLAINED, NEEDS IN REACH. SAFETY MAINTAINED.
--- NOTE | 2016-09-27 16:28 | Operative Report ---
Operative/Inv Procedure Report Surgery Date: 09/27/16 Name of Procedure: Left total knee replacement Pre-Operative Diagnosis: Primary left knee DJD Post-Operative Diagnosis: Same Estimated Blood Loss: 50ml to 100ml Surgeon/Edger Saw Operator: ROBY THAKUR,REYMUNDO Wise Anesthesia: block Operative/Procedure Note Note: Description of Procedure: The patient was taken to the operating room and positively identified. After induction of spinal anesthesia and administration of appropriate pre-operative antibiotics, the patient was positioned supine on the operating room table and all bony prominences were well padded. A well-padded pneumatic tourniquet was placed on the left upper thigh. After performing a surgical timeout, the left lower extremity was prepped and draped in the usual sterile fashion. After exsanguination with Esmarch the tourniquet was inflated to 250mm of mercury. A standard medial parapatellar approach was made to the knee. This was carried down through skin and subcutaneous tissue to the level of the fascia. Meticulous hemostasis was maintained with Bovie electrocautery. The extensor mechanism and patellar retinaculum were opened sharply and the patella was everted. The infrapatellar fat was resected in order to improve exposure. Osteophytes were trimmed from the patella and femoral condyles and the patella was re-everted and tucked laterally. A medial release was performed and the cruciate ligaments were resected. The tibia was then subluxed anteriorly. Utilizing the appropriate extra-medullary guide, the proximal tibia was trimmed perpendicular to the long axis of the tibial shaft. Attention was then turned to the femur. After opening the medullary canal, the distal femoral cut was made in 6 degrees of valgus utilizing the appropriate intra-medullary guide. The extension gap was checked and found to be appropriate. The femur was then sized and the remainder of the femoral cuts were made with a size 4 4-in-1 femoral cutting guide. The flexion gap was checked and found to be symmetric and appropriate. The knee was then trialed with a size 4 femoral component, a size #4 tibial component and a size 9 mm polyethylene insert. The patella was trimmed to accept an A 32 patella. This yielded excellent range of motion, stability and patellar tracking. All trial components were removed and the knee was copiously irrigated with sterile saline. All components were cemented into place with [place] Simplex cement. All the components were of the Elisabeth Triathlon knee system of the above stated sizes. The knee was again irrigated after cementation. The extensor mechanism and patellar retinaculum were repaired using interrupted #1 vicryl suture. The skin was re-approximated with 2-0 vicryl and closed with jillian. A sterile dressing was applied, the tourniquet was deflated, the patient was awakened and taken to the recovery room in satisfactory condition.
[2016-09-27 17:12] VITALS: BP 158/96
[2016-09-27 19:33] VITALS: BP 150/90
[2016-09-27 22:04] VITALS: BP 152/82
--- NOTE | 2016-09-28 00:07 | NUR ---
ALERT AND ORIENTED X 3. ON ROOM AIR. DENIES SHORTNESS OF BREATH. VITAL SIGNS STABLE. DENIES CHEST PAIN. + PULSES. DENIES NUMBNESS/TINGLING DSG TO LLE IS C/D/I. ICE TO L KNEE. AX1 W/RW. SKIN C/D/I. PATIENT RESTING COMFORTABLY AT THIS TIME.
[2016-09-28 02:00] VITALS: BP 110/58
[2016-09-28 07:24] VITALS: BP 138/88
[2016-09-28 07:50] LABS: ABSOLUTE BASOPHIL COUNT 0 /CUMM (0.0-0.2); ABSOLUTE EOSINOPHIL COUNT 0 /CUMM (0.0-0.7); ABSOLUTE GRANULOCYTE CT 7.7 /CUMM (1.4-6.5); ABSOLUTE LYMPH COUNT 0.9 /CUMM (1.2-3.4); ABSOLUTE MONOCYTE COUNT 0.7 /CUMM (0.10-0.60); BASOPHIL % 0 % (0.0-2.0); EOSINOPHIL % 0 % (0-5); HEMATOCRIT 31.7 % (37-47); MEAN CORPUSCULAR HGB CONC 34.2 G/DL (33.0-37.0); MEAN CORPUSCULAR VOLUME 87.6 FL (81.0-99.0); MEAN PLATELET VOLUME 8.9 FL (7.4-10.4); PLATELET COUNT 186 /CUMM (130-400); RBC DISTRIBUTION WIDTH 13.3 % (11.5-14.5); RED BLOOD CELL CT 3.62 /CUMM (4.20-5.40); WHITE BLOOD CELL COUNT 9.3 /CUMM (4.8-10.8)
--- NOTE | 2016-09-28 08:04 | PN- Orthopedic ---
Subjective Subjective: The patient was seen this morning postoperatively day #1. She complains of significant incisional pain and reports that the Dilaudid does not work well for her. She did however have adequate relief of her pain with IV Toradol. She had no other complaints at the current time. Objective Vital Signs and I&Os Vital Signs Date Time Temp Pulse Resp B/P B/P Pulse O2 O2 Flow FiO2 Mean Ox Delivery Rate 09/28 0724 98.0 93 22 138/88 97 Room Air 09/28 0200 98.3 80 18 110/58 94 Room Air 09/27 2204 98.2 92 20 152/82 93 Room Air 09/27 2113 Room Air Room Air 09/27 1933 98.3 74 19 150/90 94 Room Air 09/27 1712 97.9 90 19 158/96 92 Room Air 09/27 1502 20 92 Room Air 09/27 1430 94 Nasal 2.0L Cannula 09/27 1430 97.9 78 20 128/70 94 Nasal 2.0L Cannula Intake & Output 09/28 1600 09/28 0800 09/28 0000 09/27 1600 09/27 0800 09/27 0000 Intake Total 840 450 Output Total 150 600 800 Balance 690 -150 -800 Intake, IV 600 Intake, Oral 240 450 Number 0 Bowel Movements Output, Urine 150 600 800 Patient 240 lb Weight Weight Reported by Patient Measurement Method Physical Exam: Gen.: Alert and in no obvious distress Skin: Warm and dry Extremities: Bilateral lower extremities were warm without calf tenderness or significant edema. Gross motor and sensory were intact. Left lower extremity surgical incision was clean, dry, and intact. There is an On-Q pain pump in place. Assessment/Plan Assessment/Plan Assessment: 70-year-old female status post left total knee arthroplasty postoperative day 1. The patient is progressing as expected however pain is not in optimal control with the current time. Plan: Add MS Contin 15 mg by mouth twice a day scheduled to current pain regiment Out of bed with physical therapy Hep-Lock IV fluids Follow-up morning laboratory studies GI and DVT prophylaxis First surgical dressing change tomorrow Core Measures/Miscellaneous Venous Thromboembolism VTE Risk Factors: Age > 40, Obesity, Surgery VTE Contraindications: No Contraindications VTE Diagnosis: No VTE Type: NONE VTE Confirmed by (Test): NONE Beta Gerry Is Beta Gerry a Home Med? No Antibiotics Is Patient on Antibiotics? No
[2016-09-28 08:49] LABS: GRANULOCYTE % 83.5 % (42.2-75.2)
[2016-09-28 10:00] VITALS: BP 132/78
[2016-09-28 14:39] VITALS: BP 118/60
--- NOTE | 2016-09-28 14:48 | NUR ---
NURSING SHIFT NOTE: PT REMAINS AWAKE, A/OX3, ROOM AIR, TOLERATING DIET, PT WORKED WITH P.T. TWICE TODAY, ALSO AMBULATED TO BR WITH ASSIST X1/RW, CURRETNLY RESTING IN BED, ALPS IN PLACE, ICE PACK ON. MS CONTIN STARTED TODAY FOR PAIN.PT NOT REQUESTNG PAIN MEDS AT THIS TIME, KLARISSA WRAP TO LLE. ON Q PUMP IN PLACE. NEEDS IN REACH, SAFETY MAINTAINED.
--- NOTE | 2016-09-28 16:40 | NUR ---
at 1630 PT IN 11/25. TORDOL GIVEN. PT APPEARS FLUSHED ON THE CHEEKS AND STATES SHE "FEELS LOUSY". BP 140/60, HR 95, TEMP 98.8, O2 97% ON ROOM AIR. + CMS ON BILAT LOWER EXT. LUNGS CLEAR. WILL CONTINUE TO MONITOR PATIENT. PT IN CHAIR RESTING. IN NO APPARENT DISTRESS. CALL SIMPSON WITHIN REACH.
[2016-09-28 21:42] VITALS: BP 180/90
--- NOTE | 2016-09-28 21:47 | NUR ---
PT IN 01/25 R KNEE PAIN. BP 170/80. SURGICAL PA SUSY PEPE. ONE TIME DOSE OF 15 MG OF TORDOL GIVEN. NORVASC 2.5 MG ORDERED. WILL RECHECK BP IN ONE HOUR AFTER NORVASC ADMINISTRATION. BP SITTING IN CHAIR. IN NO APPARRENT DISTRESS.
[2016-09-28 23:00] VITALS: BP 172/80
--- NOTE | 2016-09-28 23:22 | NUR ---
BP 172/70. SURGICAL PA SUSY PAGED. PER SURGICAL PA, BP OK. NO NEW ORDERS AT THIS TIME. PATIENT SLEEPING IN BED, PAIN FEELS BETTER PER PATIENT. CALL SIMPSON IN REACH. ALPS ON.
[2016-09-29 01:43] VITALS: BP 148/68
[2016-09-29 05:54] VITALS: BP 142/86
--- NOTE | 2016-09-29 06:46 | PN- Orthopedic ---
Subjective Subjective: POD#2 S/P LEFT TKA POOR PAIN CONTRAOL LAST NIGHT DENIES CP, SOB, NO N+V WITH DIET C/O ALOT OF PAOIN WITH AMBULATION Objective Vital Signs and I&Os Vital Signs Date Time Temp Pulse Resp B/P B/P Pulse O2 O2 Flow FiO2 Mean Ox Delivery Rate 09/29 0554 100.0 90 22 142/86 95 Room Air 09/29 0143 148/68 09/28 2300 172/80 09/28 2152 170/80 / 2142 99.5 97 19 180/90 94 / 1439 98.4 80 18 118/60 96 Room Air 09/28 1000 97.9 80 20 132/78 96 Room Air 09/28 0958 76 132/70 09/28 0724 98.0 93 22 138/88 97 Room Air Intake & Output 09/29 0800 09/29 0000 09/28 1600 09/28 0800 09/28 0000 09/27 1600 Intake Total 490 650 875 840 450 Output Total 913 976 0821 150 600 800 Balance -110 550 -175 690 -150 -800 Intake, IV 10 75 600 Intake, Oral 480 650 800 240 450 Number 0 0 0 Bowel Movements Output, Urine 460 718 1749 150 600 800 Patient 240 lb Weight Weight Reported by Patient Measurement Method Physical Exam: CV: RRR LUNGS: CLEAR ABD: SOFT, +BS EXT: DRSG CHANGED, WOUND C/D/I DISTAL CMS INTACT NO CALF TENDERNESS BILAT Assessment/Plan Assessment/Plan ORTHO STABLE PAIN CONTROL ISSUES PLAN ASA FOR DVT PROPHYLAXIS CONT OOB WITH PT TITRATE PAIN MEDS HOME DC/ PLANNING Core Measures/Miscellaneous Venous Thromboembolism VTE Risk Factors: Age > 40, Obesity, Surgery VTE Contraindications: No Contraindications VTE Diagnosis: No VTE Type: NONE VTE Confirmed by (Test): NONE Beta Gerry Is Beta Gerry a Home Med? No Antibiotics Is Patient on Antibiotics? No
[2016-09-29 14:29] VITALS: BP 152/94
[2016-09-29 22:19] VITALS: BP 130/80
--- NOTE | 2016-09-29 22:40 | NUR ---
ALERT AND ORIENTED X 3. ON ROOM AIR. DENIES SHORTNESS OF BREATH. LUNGS CLEAR VITAL SIGNS STABLE. DENIES CHEST PAIN. + PULSES. DENIES NUMBNESS/TINGLING ICE PACK TO LLE. AX1 W/RW. DSG TO LLE IS C/D/I. MEDICATION GIVEN FOR DISCOMFORT. PATIENT RESTING AT THIS TIME
[2016-09-30 07:11] VITALS: BP 146/66
--- NOTE | 2016-09-30 07:57 | PN- Orthopedic ---
Subjective Subjective: No acute overnight events reported. Pain well controlled with po ms contin added two days ago. Denies chest pain, shortness of breath and difficulty breathing. Denies nausea and vomitting. Has been OOB, has been voiding. No bm yet but passing flatus. Objective Vital Signs and I&Os Vital Signs Date Time Temp Pulse Resp B/P B/P Pulse O2 O2 Flow FiO2 Mean Ox Delivery Rate 09/30 0857 132/68 09/30 0711 98.1 68 18 146/66 93 Room Air 09/29 2219 99.1 87 18 130/80 95 09/29 1429 98.4 85 20 152/94 93 Room Air 09/29 0932 76 140/70 Intake & Output 09/30 1600 09/30 0800 09/30 0000 09/29 1600 09/29 0800 09/29 0000 Intake Total 10 450 920 490 650 Output Total 300 300 850 600 100 Balance -290 150 70 -110 550 Intake, IV 10 20 10 Intake, Oral 450 900 480 650 Number 0 0 Bowel Movements Output, Urine 300 300 850 600 100 Physical Exam: General: Alert and oriented x3, no acute distress Cardiac: R RR, s1s2 Pulm: CTA bilaterally ABD: Non-tender, non-distended Extremties: Moves all extremities, distal sensation intact. Skin warm and well perfused. DP pulses palpable. Bilateral calves soft and non-tender. Dressing dry and intact. Assessment/Plan Assessment/Plan This is a 70 year old female, POD 3, s/p L TKA, doing well and anticipating discharge to home with home health services today. -Continue current pain regimen -COntineu oob, wbat -Continue bid asa 325 for dvt ppx -Continue diet as tolerated -Discharge to home with health services today -Will d/w Dr. Benítez Core Measures/Miscellaneous Venous Thromboembolism VTE Risk Factors: Age > 40, Obesity, Surgery VTE Contraindications: No Contraindications VTE Diagnosis: No VTE Type: NONE VTE Confirmed by (Test): NONE Beta Gerry Is Beta Gerry a Home Med? No Antibiotics Is Patient on Antibiotics? No
[2016-09-30 08:57] VITALS: BP 132/68
== END 2016-09-30 11:58 | disposition home health service (06) | DRG 470 ==
LOC: SDA 04:56 → ENRESERV 12:17 → ENTRNSPT 13:19 → EDTRNSPT 13:51 → EDTRNSPTSTS 14:27 → 2NB 14:33 → CMPTRNSPT 15:21 → ENPENDDIS 09-30 08:03 → 2NB 09-30 11:58
PROVIDERS: Nurse Practitioner; ADMIT Orthopaedic Surgery
PROC: 0SRD0J9 Replacement of Left Knee Joint with Synthetic Substitute, Cemented, Open Approach (ICD-10-PCS; principal; 2016-09-27)
DX: M17.12 Unilateral primary osteoarthritis, left knee (principal); K31.84 Gastroparesis; Z68.41 Body mass index [BMI] 40.0-44.9, adult; E11.43 Type 2 diabetes mellitus with diabetic autonomic (poly)neuropathy; I10 Essential (primary) hypertension; F32.9 Major depressive disorder, single episode, unspecified; E66.9 Obesity, unspecified; K21.9 Gastro-esophageal reflux disease without esophagitis
CPT/HCPCS: 2NBP; 36415; 82436; 88305; 97110-GO; 97116-GO; 97161-GP; 97530-GO; C1713; J0131; J0690; J1200; J1885; J2550; J2795; J7042